=== PATIENT | female | born 1990 | race Caucasian/White ===

== ENCOUNTER → 2017-03-21 | Outpatient (CLI) | payer OTHER ==
[~2017-03-21] MED LIST: NORCO 5-325 TA1 EACH PO
[2017-03-21 12:13] LABS: HEMOGLOBIN 13.7 gm/dl (12.3-15.3); RED BLOOD COUNT 4.52 M/UL (4.00-5.10); WHITE BLOOD COUNT 6.2 K/UL (4.5-11.0)
[2017-03-21 12:36] LABS: BUN/CREATININE RATIO 18 (0-10)
== END ==
LOC: LAB 11:03
PROVIDERS: Emergency Medicine
DX: B18.2 Chronic viral hepatitis C (principal); F41.1 Generalized anxiety disorder; K21.9 Gastro-esophageal reflux disease without esophagitis
CPT/HCPCS: 36415; 80053; 80074; 85027; 87390

== ENCOUNTER 2017-03-28 15:01 | Emergency (ER) | payer OTHER | END 2017-03-28 18:41 | disposition home or self-care (01) | LOC: ER1 15:01 | DX: S09.90XA Unspecified injury of head, initial encounter (principal); S61.213A Laceration without foreign body of left middle finger without damage to nail, initial encounter; F43.10 Post-traumatic stress disorder, unspecified; F17.200 Nicotine dependence, unspecified, uncomplicated; Z79.899 Other long term (current) drug therapy; X99.0XXA Assault by sharp glass, initial encounter; Y07.410 Brother, perpetrator of maltreatment and neglect | CPT/HCPCS: 70450; 90471; 90714; 99283 ==